=== PATIENT | female | born 1995 | race Caucasian/White ===

== ENCOUNTER 2018-01-09 14:19 | Emergency (ER) | payer OTHER ==
--- NOTE | 2018-01-09 15:52 | RAD ---
RIGHT FOOT 3 VIEWS: HISTORY: Cough. Pain. Injury. COMPARISON: None. FINDINGS: No fracture. No focal irregularity. No periosteal reaction. Joint space is preserved. Lisfranc al ignment is maintained. IMPRESSION: No fracture. POS: [facility]
--- NOTE | 2018-01-09 15:56 | RAD ---
THREE VIEWS RIGHT ANKLE: History: Fall. Injury. Pain. Comparison: None. FINDINGS: Joint spaces are preserved. Ankle mortise appears to be intact. Nondisplaced lateral malleolar fractu re with overlying soft tissue swelling. IMPRESSION: Nondisplaced lateral malleolar fracture with associated swelling. POS: [facility]
== END 2018-01-09 15:55 | disposition home or self-care (01) ==
LOC: ERS 14:19
DX: S82.64XA Nondisplaced fracture of lateral malleolus of right fibula, initial encounter for closed fracture (principal); X50.1XXA Overexertion from prolonged static or awkward postures, initial encounter
CPT/HCPCS: 27786